=== PATIENT | male | born 1935 | race Caucasian/White ===

== ENCOUNTER 2020-06-16 14:15 | Day surgery (SDCO) | payer MEDICARE, OTHER ==
[~2020-06-16 14:15] MED LIST: ACETAMINOPHEN325 MG PO; ALLEGRA ALLERG180 MG PO; AMIODARONE HCL200 M1 PO; ASPIRIN EC81 MG PO; ATACAND32 MG PO; COLACE100 MG PO; CRESTOR20 MG PO; FLEXERIL5 MG PO; LOPRESSOR25 MG PO; MILK OF MA400 MG/5 M PO; NORVASC 10MG TA10 MG PO; OCUVITE ADULT1 EACH PO; SAVAYSA60 MG PO; SENOKOT-S TABL1 EACH PO; SYNTHROID100 MCG PO; TRAMADOL HCL50 MG PO; VITAMIN D35000 UNIT PO
[2020-06-16 16:03] LABS: BASOPHIL 0.5 % (0-2); EOSINOPHIL 1.9 % (0-7); HCT 49.5 % (42.0-52.0); HGB 16.4 g/dl (13.2-18.0); LYMPHOCYTE 30.4 % (15-48); MCH 33.3 pg (25.0-31.0); MCHC 33.1 g/dL (32.0-36.0); MCV 100.4 fL (78.0-100.0); MPV 11.9 fL (6.0-9.5); NEUTROPHIL 53.9 % (41-80); NRBC 0; PLT 193 K/uL (150-400); RBC 4.93 M/uL (4.70-6.00); RDW 13.8 % (11.5-14.0); WBC 6.3 K/uL (4.0-10.5)
[2020-06-16 16:12] LABS: INR 1.32 (0.9-1.2); PROTHROMBIN TIME 15.6 SECONDS (11.4-13.6)
[2020-06-16 16:13] LABS: PTT 36.5 SECONDS (22.2-34.7)
[2020-06-16 16:14] LABS: D-DIMER 0.37 ug/mLFEU (0.00-0.41)
[2020-06-16 16:21] LABS: PRO-BNP 2829 pg/mL (<450)
[2020-06-16 16:41] LABS: FT4 (FREE T4) 1.4 ng/dL (0.76-1.46); MAGNESIUM 2.2 mg/dL (1.8-2.4)
[2020-06-16 17:37] LABS: ALBUMIN 4.1 g/dL (3.4-5.0); BILIRUBIN - TOTAL 0.7 mg/dL (0.2-1.0); BUN/CREAT RATIO (CALC) 13.9 RATIO; CREATININE 1.22 mg/dL (0.67-1.17); GLOBULIN (CALCULATION) 3.7 g/dL; TOTAL PROTEIN 7.8 g/dL (6.4-8.2)
[2020-06-17] MEDS ORDERED: PRAVASTATIN SOD10 M1 PO (00:30)
[2020-06-17] MEDS ORDERED: TOPROL XL 25MG25 MG PO (00:30)
[2020-06-17] MEDS ORDERED: SYNTHROID112 MCG PO (00:31)
[2020-06-17 00:32] LABS: INFLUENZA A NAA NEGATIVE (NEGATIVE)
[2020-06-17] MEDS ORDERED: LASIX20 MG PO (00:32)
[2020-06-17] MEDS ORDERED: OCUVITE ADULT1 EAC1 PO (00:32)
[2020-06-17] MEDS ORDERED: ELIQUIS5 MG PO (00:32)
[2020-06-17] MEDS ORDERED: B COMPLEX1 EACH PO (00:33)
[2020-06-17 00:34] LABS: CORONAVIRUS 2019 SARS-COV-2 POSITIVE (NEGATIVE)
[2020-06-17] MEDS ORDERED: K-DUR20 MEQ PO (00:34)
[2020-06-17] MEDS ORDERED: TYLENOL PM EX-1 EACH PO (00:35)
[2020-06-17 04:06] LABS: BASOPHIL 0.4 % (0-2); HCT 46.6 % (42.0-52.0); HGB 15.5 g/dl (13.2-18.0); LYMPHOCYTE 21.4 % (15-48); MCHC 33.3 g/dL (32.0-36.0); MCV 99.4 fL (78.0-100.0); MONOCYTE 10.2 % (0-12); MPV 11.2 fL (6.0-9.5); NEUTROPHIL 65.5 % (41-80); NRBC 0; PLT 169 K/uL (150-400); RBC 4.69 M/uL (4.70-6.00); RDW 13.6 % (11.5-14.0); WBC 7.6 K/uL (4.0-10.5)
[2020-06-17 04:30] LABS: INR 1.3 (0.9-1.2); PROTHROMBIN TIME 15.4 SECONDS (11.4-13.6)
[2020-06-17 04:48] LABS: CREATININE 1.05 mg/dL (0.67-1.17); PHOSPHORUS 2.7 mg/dL (2.6-4.7); POTASSIUM 3.8 mmol/L (3.5-5.1)
[2020-06-17 05:15] LABS: PRO-BNP 2358 pg/mL (<450)
[2020-06-17] MEDS ORDERED: CARDIZEM CD120 MG PO ×2 (14:18→16:43)
[2020-06-17] MEDS ORDERED: TOPROL XL 50 MG50 MG PO (14:18)
== END 2020-06-17 16:30 | disposition home or self-care (01) ==
LOC: FER 14:15 → FTCU 22:42 → FMS 22:42 → FTCU 06-17 08:57
PROVIDERS: Emergency Medicine; Nurse Practitioner; ADMIT Internal Medicine
DX: R07.9 Chest pain, unspecified (principal); I25.119 Atherosclerotic heart disease of native coronary artery with unspecified angina pectoris; U07.1 COVID-19; I10 Essential (primary) hypertension; I48.20 Chronic atrial fibrillation, unspecified; E78.5 Hyperlipidemia, unspecified; E11.9 Type 2 diabetes mellitus without complications; G89.29 Other chronic pain; M54.9 Dorsalgia, unspecified; M19.90 Unspecified osteoarthritis, unspecified site; K21.9 Gastro-esophageal reflux disease without esophagitis; E03.9 Hypothyroidism, unspecified; Z90.49 Acquired absence of other specified parts of digestive tract; Z98.890 Other specified postprocedural states; Z96.662 Presence of left artificial ankle joint; Z88.5 Allergy status to narcotic agent; Z80.9 Family history of malignant neoplasm, unspecified; Z82.49 Family history of ischemic heart disease and other diseases of the circulatory system; Z79.01 Long term (current) use of anticoagulants; Z79.899 Other long term (current) drug therapy; Z95.5 Presence of coronary angioplasty implant and graft
CPT/HCPCS: 36415; 71275; 80048; 80053; 82728; 83605; 83735; 83880; 84100; 84439; 84443; 84484; 85025; 85379; 85610; 85730; 93005; 94010; G0378; Q9967; U0002

== ENCOUNTER 2021-01-26 10:23 | Inpatient (IN) | payer MEDICARE, OTHER ==
[~2021-01-26] VITALS: Ht 175.3 cm; Wt 93.7 kg
[~2021-01-26 10:23] MED LIST changes: +B COMPLEX1 EACH PO; +CARDIZEM CD120 MG PO; +ELIQUIS5 MG PO; +K-DUR20 MEQ PO; +LASIX20 MG PO; +OCUVITE ADULT1 EAC1 PO; +PRAVASTATIN SOD10 M1 PO; +SYNTHROID112 MCG PO; +TOPROL XL 25MG25 MG PO; +TOPROL XL 50 MG50 MG PO; +TYLENOL PM EX-1 EACH PO
[2021-01-26 11:13] LABS: BASOPHIL 0.2 % (0-2); EOSINOPHIL 0.2 % (0-7); HCT 46.1 % (42.0-52.0); HGB 15.8 g/dl (13.2-18.0); LYMPHOCYTE 6.5 % (15-48); MCH 33.4 pg (25.0-31.0); MCHC 34.3 g/dL (32.0-36.0); MCV 97.5 fL (78.0-100.0); MONOCYTE 6.3 % (0-12); NEUTROPHIL 86.2 % (41-80); NRBC 0; PLT 291 K/uL (150-400); RBC 4.73 M/uL (4.70-6.00); RDW 12.5 % (11.5-14.0); WBC 18.4 K/uL (4.0-10.5)
[2021-01-26 11:32] LABS: LACTIC ACID 1.2 mmol/L (0.4-1.9)
[2021-01-26 11:33] LABS: BILIRUBIN - TOTAL 0.7 mg/dL (0.2-1.0); BUN/CREAT RATIO (CALC) 14.6 RATIO; CREATININE 1.3 mg/dL (0.67-1.17); GLOBULIN (CALCULATION) 3.8 g/dL; POTASSIUM 3.4 mmol/L (3.5-5.1); TOTAL PROTEIN 6.8 g/dL (6.4-8.2)
[2021-01-26 11:34] LABS: CKMB 0.8 ng/mL (0.0-3.6); PRO-BNP 3681 pg/mL (<450)
[2021-01-26 12:32] LABS: BILIRUBIN NEGATIVE (NEGATIVE); BLOOD TRACE-INTACT Ery/uL (NEGATIVE); CLARITY CLEAR (CLEAR); COLOR YELLOW (YELLOW); GLUCOSE (U) NORMAL (NORMAL); LEUKOCYTES NEGATIVE Leu/uL (NEGATIVE); NITRITE NEGATIVE (NEGATIVE); PROTEIN NEGATIVE (NEGATIVE); UROBILINOGEN 0.2 mg/dL (0.2-1.0)
[2021-01-26] MEDS ORDERED: VITAMIN D325 MC1 PO (15:59)
[2021-01-26] MEDS ORDERED: TOPROL XL 25MG25 MG PO (15:59)
[2021-01-26] MEDS ORDERED: POTASSIUM99 M1 PO (16:19)
--- NOTE | 2021-01-27 05:27 | NUR ---
CARDIZEM 125MG/125ML D5W INFUSING AT 15ML/HR, PT HEART RATE 72, BLOOD PRESSURE 89/52 (0000 01/27/21) RN TITRATED TO 10ML/HR PER PROTOCOL AND VERBAL ORDER FROM OUTREACH ASSISTANT, WILL CONTINUE TO MONITOR
[2021-01-27 05:47] LABS: BASOPHIL 0.2 % (0-2); EOSINOPHIL 0.4 % (0-7); HCT 38.8 % (42.0-52.0); HGB 13.6 g/dl (13.2-18.0); MCH 33.8 pg (25.0-31.0); MCHC 35.1 g/dL (32.0-36.0); MCV 96.5 fL (78.0-100.0); MONOCYTE 9.1 % (0-12); MPV 10.8 fL (6.0-9.5); NEUTROPHIL 80.8 % (41-80); NRBC 0; PLT 256 K/uL (150-400); RBC 4.02 M/uL (4.70-6.00); RDW 12.5 % (11.5-14.0); WBC 15.8 K/uL (4.0-10.5)
[2021-01-27 06:05] LABS: BUN/CREAT RATIO (CALC) 15.6 RATIO; CREATININE 1.22 mg/dL (0.67-1.17); MAGNESIUM 1.8 mg/dL (1.8-2.4); POTASSIUM 3.6 mmol/L (3.5-5.1)
--- NOTE | 2021-01-27 15:45 | NUR ---
01/27/21 Mr. Lowry lives alone. He has 6 living children. His daughter, Sherron Lopez lives next door. Ms. Lopez manages the medications and brings often brings the evening meals. Joey Lowry, son, visits most days. He cleans the house. - Mr. Lowry goes out for his noon meals. - Mr. Lowry has had [facility] in the past and would like [facility] at discharge if needed. - Mr. Lowry use a cane and s. chair. He has access to a rw and 3in1. - Will monitor for discharge planning needs.
[2021-01-28 06:50] LABS: BASOPHIL 0.1 % (0-2); EOSINOPHIL 0.4 % (0-7); HCT 39.4 % (42.0-52.0); HGB 13.7 g/dl (13.2-18.0); LYMPHOCYTE 8.1 % (15-48); MCH 34.1 pg (25.0-31.0); MCHC 34.8 g/dL (32.0-36.0); MONOCYTE 8.5 % (0-12); MPV 10.9 fL (6.0-9.5); NEUTROPHIL 82.2 % (41-80); NRBC 0; PLT 248 K/uL (150-400); RBC 4.02 M/uL (4.70-6.00); RDW 12.7 % (11.5-14.0); WBC 15.1 K/uL (4.0-10.5)
[2021-01-28 07:08] LABS: BUN/CREAT RATIO (CALC) 14.6 RATIO; CREATININE 1.3 mg/dL (0.67-1.17); MAGNESIUM 1.9 mg/dL (1.8-2.4); POTASSIUM 4.4 mmol/L (3.5-5.1)
--- NOTE | 2021-01-28 22:35 | NUR ---
CARDIZEM DRIP STOPPED AT 1400 PER DAYSHIFT DUE TO LOW BP. PT STILL OFF CARDIZEM WITH HR IN 80'S AND BP IN LOW 100'S SYSTOLICALLY. CONTINUING TO MONITOR
--- NOTE | 2021-01-28 23:36 | NUR ---
[facility] WANTS MEDICAL STAFF TO BE AWARE PT/S HEART DOCTOR IS DR. REYNA
--- NOTE | 2021-01-29 05:49 | NUR ---
430 PTS BP WENT DOWN TO 65/33 RN GAVE SCHEDULED MIDODRINE 5 MG RN STARTED 500 BOLUS AT 250 ML/HR LR AT 500 PER VERBAL HEEL SEAT FLAP STAPLER MEDITECH DOWN AT TIME
[2021-01-29 06:27] LABS: BASOPHIL 0.2 % (0-2); EOSINOPHIL 0.7 % (0-7); HCT 39.3 % (42.0-52.0); HGB 13.5 g/dl (13.2-18.0); LYMPHOCYTE 8.7 % (15-48); MCH 33.7 pg (25.0-31.0); MCHC 34.4 g/dL (32.0-36.0); MONOCYTE 8.4 % (0-12); MPV 10.6 fL (6.0-9.5); NEUTROPHIL 81.3 % (41-80); NRBC 0; PLT 261 K/uL (150-400); RBC 4.01 M/uL (4.70-6.00); RDW 12.6 % (11.5-14.0); WBC 15.1 K/uL (4.0-10.5)
[2021-01-29 06:42] LABS: BUN/CREAT RATIO (CALC) 14.3 RATIO; CREATININE 1.26 mg/dL (0.67-1.17); POTASSIUM 3.6 mmol/L (3.5-5.1)
--- NOTE | 2021-01-29 13:18 | NUR ---
01/29/21 A referral was made to [facility] per patient choice for nursing services to monitor BP and HR. Pt verbalized understand of affliation.
--- NOTE | 2021-01-30 03:35 | NUR ---
PT PULSE UP TO 130-150 WHEN PT UP TO BR B/P 115/73. LOPRESSOR THAT WAS HELD EARLIER AT 22 00 IS GIVEN NOW GROUP EXERCISE INSTRUCTOR NOTIFIED ALSO
[2021-01-30 06:51] LABS: BASOPHIL 0.2 % (0-2); EOSINOPHIL 0.4 % (0-7); HCT 39.9 % (42.0-52.0); HGB 13.3 g/dl (13.2-18.0); LYMPHOCYTE 11.8 % (15-48); MCHC 33.3 g/dL (32.0-36.0); MONOCYTE 9.4 % (0-12); MPV 10.8 fL (6.0-9.5); NEUTROPHIL 77.4 % (41-80); NRBC 0; PLT 276 K/uL (150-400); RBC 4.03 M/uL (4.70-6.00); RDW 12.8 % (11.5-14.0); WBC 18.1 K/uL (4.0-10.5)
[2021-01-30 07:05] LABS: CREATININE 1.33 mg/dL (0.67-1.17); MAGNESIUM 1.7 mg/dL (1.8-2.4); POTASSIUM 3.4 mmol/L (3.5-5.1)
--- NOTE | 2021-01-30 19:59 | NUR ---
THERAPIST PHYSICAL RADHA NOTIFIED ON PT C/O RIGHT POSTERIOR KNEE PAIN. NEW ORDERS NOTED
[2021-01-31 07:28] LABS: BUN/CREAT RATIO (CALC) 12.4 RATIO; CREATININE 1.13 mg/dL (0.67-1.17); MAGNESIUM 2.1 mg/dL (1.8-2.4); POTASSIUM 3.7 mmol/L (3.5-5.1)
[2021-01-31 07:36] LABS: BASOPHIL 0.2 % (0-2); EOSINOPHIL 0.7 % (0-7); HCT 37.7 % (42.0-52.0); HGB 12.8 g/dl (13.2-18.0); LYMPHOCYTE 11.2 % (15-48); MCH 33.3 pg (25.0-31.0); MCV 98.2 fL (78.0-100.0); MONOCYTE 10.4 % (0-12); MPV 11.1 fL (6.0-9.5); NEUTROPHIL 76.9 % (41-80); NRBC 0; PLT 256 K/uL (150-400); RBC 3.84 M/uL (4.70-6.00); RDW 12.6 % (11.5-14.0); WBC 14.2 K/uL (4.0-10.5)
--- NOTE | 2021-01-31 09:49 | NUR ---
01/31/21 Please notify [facility] at [phone] if patient is dced over the weekend.
[2021-02-01] MEDS ORDERED: CARDIZEM CD120 MG PO (07:49)
[2021-02-01] MEDS ORDERED: TOPROL XL 50 MG50 MG PO (07:49)
[2021-02-01] MEDS ORDERED: VANCOCIN HCL125 MG PO (08:28)
[2021-02-01] MEDS ORDERED: AMIODARONE HCL200 MG PO (08:30)
[2021-02-01] MEDS ORDERED: NORCO 5-325 TA1 EACH PO (08:32)
--- NOTE | 2021-02-01 12:21 | NUR ---
DC'ED HOME 02.01.21 @ 1217. IV DC'ED, TIP INTACT. DC PAPERWORK GIVEN. PT AND FAMILY VERBALIZED INSTRUCTIONS.
--- NOTE | 2021-02-03 14:09 | NUR ---
02/03/21 A preauth was requested from Wendy for Vancomycin HCI 125 MG. Pre-auth was unsuccessfully attempted through [facility] stating eligibility could not be verified. Yu was requested to contact [facility] as advised by [facility].
== END 2021-02-01 11:50 | disposition home health service (06) | DRG 372 ==
LOC: FER 10:23 → FTCU 14:25 → FMS 01-30 09:15 → FTCU 01-30 12:58
PROVIDERS: Allergy & Immunology Allergy; Emergency Medicine; ADMIT Internal Medicine
DX: A04.72 Enterocolitis due to Clostridium difficile, not specified as recurrent (principal); N17.9 Acute kidney failure, unspecified; I48.20 Chronic atrial fibrillation, unspecified; I13.0 Hypertensive heart and chronic kidney disease with heart failure and stage 1 through stage 4 chronic kidney disease, or unspecified chronic kidney disease; G89.29 Other chronic pain; Z20.822 Contact with and (suspected) exposure to COVID-19; M54.50 Low back pain, unspecified; E86.0 Dehydration; I50.9 Heart failure, unspecified; I36.1 Nonrheumatic tricuspid (valve) insufficiency; M17.11 Unilateral primary osteoarthritis, right knee; I25.10 Atherosclerotic heart disease of native coronary artery without angina pectoris; K21.9 Gastro-esophageal reflux disease without esophagitis; E78.5 Hyperlipidemia, unspecified; I95.9 Hypotension, unspecified; N18.9 Chronic kidney disease, unspecified; Z96.652 Presence of left artificial knee joint; Z86.711 Personal history of pulmonary embolism; Z90.49 Acquired absence of other specified parts of digestive tract; Z90.89 Acquired absence of other organs; Z98.890 Other specified postprocedural states; Z79.01 Long term (current) use of anticoagulants; Z79.890 Hormone replacement therapy; Z79.899 Other long term (current) drug therapy; Z82.49 Family history of ischemic heart disease and other diseases of the circulatory system; Z82.3 Family history of stroke; Z80.9 Family history of malignant neoplasm, unspecified; Z95.5 Presence of coronary angioplasty implant and graft; Z88.5 Allergy status to narcotic agent
CPT/HCPCS: 36415; 36600; 73700; 74022; 80048; 80053; 81001; 82553; 82803; 83605; 83735; 83880; 84484; 85025; 87045; 87046; 87324; 87449; 93971; 97162; 97166; 97530; 97530-GP; 97535; J0282; J1940; J2405; J3475; J7060; J7120; U0002